=== PATIENT | male | born 1945 | race Caucasian/White ===

== ENCOUNTER → 2016-11-22 | Outpatient (CLI) | payer OTHER ==
[2016-06-27 07:00] VITALS: BP 118/78
[~2016-11-22] MED LIST: ASPI325T4 PO; ATOR40TA59 PO; FINA5TAB4 PO; GLIP-24 PO; LOSA25TA4 PO; MESA500C PO; METO25TA4 PO; PRED-220 PO; TAMS0.4C97 PO
== END | disposition home or self-care (01) ==
LOC: PCVCCLINIC 13:55
PROVIDERS: ATTEND Internal Medicine Cardiovascular Disease
DX: I48.91 Unspecified atrial fibrillation (principal)
CPT/HCPCS: 85610

== ENCOUNTER → 2016-12-27 | Outpatient (CLI) | payer OTHER ==
[2016-06-27 07:00] VITALS: BP 118/78
== END | disposition home or self-care (01) ==
LOC: PCVCIMAG 13:29
PROVIDERS: ATTEND Internal Medicine Cardiovascular Disease
DX: I87.2 Venous insufficiency (chronic) (peripheral) (principal); I70.212 Atherosclerosis of native arteries of extremities with intermittent claudication, left leg; I25.10 Atherosclerotic heart disease of native coronary artery without angina pectoris; I77.9 Disorder of arteries and arterioles, unspecified; E78.00 Pure hypercholesterolemia, unspecified; I10 Essential (primary) hypertension; I48.91 Unspecified atrial fibrillation; E11.9 Type 2 diabetes mellitus without complications; M79.605 Pain in left leg; M79.604 Pain in right leg
CPT/HCPCS: 93925; 93970; G0463

== ENCOUNTER → 2016-12-31 | Outpatient (CLI) | payer OTHER ==
[2016-06-27 07:00] VITALS: BP 118/78
[~2016-12-31] MED LIST changes: +CEFAZOLIN 2GM PREMIX 50 ML IV ONE; +CLOPIDOGREL BISULFATE 75 MG TABLET ONE; +DIAZEPAM 10 MG TABLET ONE; +FENTANYL PF 100 MCG/2 ML VIAL. ONE; +HEPARIN 5,000 UNIT/ML VIAL for PCVC ONE; +IODIXANOL 270 MG/ML 100 ML VIAL. ONE; +IV NORMAL SALINE 1000ML BAG 1,000 ML ONE; +IV NORMAL SALINE 500ML BAG 500 ML ONE; +LIDOCAINE 1% Multi-Dose 20 ML VIAL. ONE; +METOPROLOL TARTRATE 5 MG/5 ML VIAL. ONE; +MIDAZOLAM HCL 2 MG/2 ML VIAL. ONE; +hydrALAZINE 20 MG/ML VIAL. ONE
== END | disposition home or self-care (01) ==
LOC: PCVCINTER 07:32
PROVIDERS: ATTEND Nuclear Medicine Nuclear Cardiology
DX: I70.203 Unspecified atherosclerosis of native arteries of extremities, bilateral legs (principal); I70.92 Chronic total occlusion of artery of the extremities; I70.0 Atherosclerosis of aorta; I70.1 Atherosclerosis of renal artery; I15.0 Renovascular hypertension; I25.10 Atherosclerotic heart disease of native coronary artery without angina pectoris; I77.9 Disorder of arteries and arterioles, unspecified; I87.2 Venous insufficiency (chronic) (peripheral); E78.00 Pure hypercholesterolemia, unspecified; I10 Essential (primary) hypertension; I48.91 Unspecified atrial fibrillation; E11.9 Type 2 diabetes mellitus without complications
CPT/HCPCS: 36252; 37186; 37227; 75716; 76937; C1725; C1751; C1757; C1760; C1769; C1876; C1885; C1887; C1894; C2623; C2628; J0690; J1644; J2250; J3010; J3490; J7030; J7040; J0360; 61707

== ENCOUNTER → 2017-01-05 | Outpatient (CLI) | payer OTHER ==
[2016-06-27 07:00] VITALS: BP 118/78
[~2017-01-05] MED LIST changes: -CEFAZOLIN 2GM PREMIX 50 ML IV ONE; -CLOPIDOGREL BISULFATE 75 MG TABLET ONE; -DIAZEPAM 10 MG TABLET ONE; -FENTANYL PF 100 MCG/2 ML VIAL. ONE; -HEPARIN 5,000 UNIT/ML VIAL for PCVC ONE; -IODIXANOL 270 MG/ML 100 ML VIAL. ONE; -IV NORMAL SALINE 1000ML BAG 1,000 ML ONE; -IV NORMAL SALINE 500ML BAG 500 ML ONE; -LIDOCAINE 1% Multi-Dose 20 ML VIAL. ONE; -METOPROLOL TARTRATE 5 MG/5 ML VIAL. ONE; -MIDAZOLAM HCL 2 MG/2 ML VIAL. ONE; -hydrALAZINE 20 MG/ML VIAL. ONE
== END | disposition home or self-care (01) ==
LOC: PCVCCLINIC 13:21
PROVIDERS: ATTEND Internal Medicine Cardiovascular Disease
DX: I25.10 Atherosclerotic heart disease of native coronary artery without angina pectoris (principal); I10 Essential (primary) hypertension; I73.9 Peripheral vascular disease, unspecified; E78.00 Pure hypercholesterolemia, unspecified; I48.92 Unspecified atrial flutter
CPT/HCPCS: 93005; G0463

== ENCOUNTER → 2017-01-18 | Outpatient (CLI) | payer OTHER ==
[2016-06-27 07:00] VITALS: BP 118/78
== END | disposition home or self-care (01) ==
LOC: PCVCCLINIC 14:48
PROVIDERS: ATTEND Nuclear Medicine Nuclear Cardiology
DX: I73.9 Peripheral vascular disease, unspecified (principal); I25.10 Atherosclerotic heart disease of native coronary artery without angina pectoris; I77.9 Disorder of arteries and arterioles, unspecified; I87.2 Venous insufficiency (chronic) (peripheral); I10 Essential (primary) hypertension; E78.00 Pure hypercholesterolemia, unspecified; I48.91 Unspecified atrial fibrillation; E11.9 Type 2 diabetes mellitus without complications; I82.409 Acute embolism and thrombosis of unspecified deep veins of unspecified lower extremity
CPT/HCPCS: G0463